=== PATIENT | female | born 1965 | race Caucasian/White ===

== ENCOUNTER 2022-01-03 17:34 | Emergency (ER) | payer SELFPAY ==
--- NOTE | ~2022-01-03 | XR_ITS ---
EXAMINATION: XR chest 2V DATE: 01/03/2022 18:31 INDICATION: Shortness of breath TECHNIQUE: PA and lateral views of the chest are obtained. COMPARISON: None available FINDINGS: The lungs are free of acute opacities. There is no pleural effusion or pneumothorax. The ca rdiomediastinal silhouette is normal. There is mild thoracic spondylosis. IMPRESSION: 1. No acute cardiopulmonary abnormality. Reviewed, dictated and finalized at location F.
--- NOTE | ~2022-01-03 | CT_ITS ---
EXAMINATION: CTA chest PE protocol DATE: 01/03/2022 20:42 INDICATION: Chest pain TECHNIQUE: Computed tomography angiography (CTA) of the chest was performed with 100 mL Omnipaque-350 intravenous contrast timed to evaluate the pulmonary arteries. Coronal maximum intensity projection 3D-reconstructions were created by the technologist. The dose-length product (DLP) was 412.89 mGy-cm. Automated exposure control and iterative reconstruction technique were employed. COMPARISON: None. FINDINGS: The pulmonary arteries are well-opacified. No pulmonary embolism is identified. There is mi ld dependent atelectasis. There is mild right hilar lymphadenopathy. The heart size is normal. There is no pleural effusion or pneumothorax. The heart size is normal. IMPRESSION: 1. No pulmonary embolus. 2. Mild right hilar lymphadenopathy, likely reactive. Reviewed, dictated and finalized at location F.
[2022-01-03 17:41] VITALS: BP 103/72; PULSE 96; RESP 18; TEMP 36.3; O2SAT 99
--- NOTE | 2022-01-03 17:44 | ECG_ITS ---
Measurements Intervals [place] Rate: 91 P: 51 [place]: 158 QRS: 5 QRSD: 113 T: 29 QT: 359 QTc: 444 Interpretive Statements SINUS RHYTHM INCOMPLETE RIGHT BUNDLE BRANCH BLOCK [90+ ms QRS DURATION, TERMINAL R IN V1/V2, 40+ ms S IN I/aVL/V4/V5/V6] MODERATE VOLTAGE CRITERIA FOR LVH, CONSIDER NORMAL VARIANT [MEETS CRITERIA IN ONE OF: R(aVL), S(V1), R(V5), R(V5/V6)+S(V1)] CANNOT RULE OUT INFERIOR MYOCARDIAL INFARCTION , PROBABLY OLD [30 ms Q WAVE IN II/aVF] NO PREVIOUS ECG AVAILABLE FOR COMPARISON Electronically Signed On 01-05-2022 17:40:39 CDT by Gopi Up M.D.
[2022-01-03 18:22] LABS: Basophils Absolute Auto 0.1 K/mm3 (0.0-0.1); Basophils Percent Auto 0.9 % (0.2-1.2); Eosinophils Absolute Auto 0.2 K/mm3 (0-0.3); Eosinophils Percent Auto 1.9 % (0-4.4); Hematocrit 41.9 % (37.0-47.0); Hemoglobin 13.4 g/dL (12.0-15.0); Immature Granulocyte Absolute 0.11 K/mm3 (0.00-0.031); Immature Granulocyte Percent A 1.1 % (0-0.5); Lymphocytes Absolute Auto 3.45 K/mm3 (0.9-3.2); Lymphocytes Percent Auto 34.1 % (18.3-44.2); Mean Corpuscular Hemoglobin 29.3 pg (26-34); Mean Corpuscular Volume 91.7 fl (80-100); Monocytes Absolute Auto 0.7 K/mm3 (0.1-0.6); Neutrophils Absolute Auto 5.6 K/mm3 (1.3-6.7); Platelet Count Result 343 k/mm3 (150-375); Red Blood Count 4.57 M/mm3 (4.2-5.4); Red Cell Distribution Width 14.1 % (11.5-14.5); White Blood Count 10.1 K/mm3 (4.5-10.0)
[2022-01-03 18:35] LABS: Alanine Aminotransferase 22 U/L (6-35); Albumin Level 4.3 g/dL (3.5-5.1); Alkaline Phosphatase 88 U/L (38-126); Anion Gap 5 mmol/L (8-16); Aspartate Amino Transferase 28 U/L (14-36); Bilirubin,Total 0.5 mg/dL (0.2-1.3); Blood Urea Nitrogen 22 mg/dL (7-17); Calcium 9.2 mg/dL (8.4-10.2); Carbon Dioxide 29 mmol/L (22-30); Chloride 105 mmol/L (98-107); Estimated CRCL calculation 81 ml/min; Estimated Glomerular Filt Rate > 60; Glucose 102 mg/dL (65-110); Potassium 3.5 mmol/L (3.4-5.0); Sodium 139 mmol/L (137-145)
[2022-01-03] MEDS: SODIUM CHLORIDE 0.9% IV 1,000 ML 999 ML IV CONT (20:23)
[2022-01-03] MEDS: KETOROLAC 30 MG/ML VIAL (*BKC) IV PUSH (20:23)
--- NOTE | 2022-01-03 21:37 | ED.GENADULT ---
HPI - General Adult General Chief complaint: Back Pain/Injury Stated complaint: sciatica Time Seen by Provider: 01/03/22 19:00 History of Present Illness HPI narrative: Patient is a 56-year-old female with history of sciatica who presents ER with left-sided back pain. Ongoing throughout the day today and worsening. Worse with deep breath and with twisting and physical movements. No fevers or chills or sweats. No productive cough or hemoptysis. No new swelling to the lower extremities or calf pain. She has not tried any pain medication other than a one-time [place] which did not help. No known trauma or inciting event. No focal numbness or weakness or issue with urination/defecation. Related Data Allergies Allergy/AdvReac Type Severity Reaction Status Date / Time codeine Allergy Unknown Unknown Verified 01/03/22 17:54 Review of Systems Review of Systems: All systems reviewed & are unremarkable except as noted in HPI and below Constitutional: Constitutional: Denies chills and Denies fever(s) Cardiovascular: Cardiovascular: Denies chest pain, Denies rapid heart rate and Denies radiating jaw, neck or arm pain Respiratory: Respiratory: Denies cough and Reports dyspnea Comments: Pain with deep breath Gastrointestinal: Gastrointestinal: Denies abdominal pain, Denies nausea and Denies vomiting Musculoskeletal: Musculoskeletal: Reports back pain and Denies joint swelling Neurologic: Denies focal weakness and Denies numbness Exam Narrative: GENERAL: Well-appearing, well-nourished, and in no acute distress. HEAD: Normocephalic, atraumatic. EYES: PERRL and EOMI. ENT: Mucous membranes moist. CHEST: Clear to auscultation. No respiratory distress. HEART: Regular rate and rhythm. Normal peripheral pulses. ABDOMEN: Soft, nontender, nondistended. Back: Tender palpation left paraspinal musculature from T3-T10 as well as lower lumbar. No midline tenderness. No right-sided paraspinal muscular tenderness. EXTREMITIES: Normal range of motion. No edema. Patient up and moving bed without any issue. SKIN: Warm, dry, no rash. NEURO: Alert and oriented x3. PSYCH: Normal mood and affect. Course Course Emergency Course: Pain improved with Toradol. Informed of results. Discharge home with supportive therapy. No evidence of infection or blood clots. Vital Signs Vital signs: Vital Signs Temperature 97.3 F L 01/03/22 17:41 Pulse Rate 96 01/03/22 17:41 Respiratory Rate 18 01/03/22 17:41 Blood Pressure 103/72 01/03/22 17:41 Pulse Oximetry 99 01/03/22 17:41 Oxygen Delivery Room Air 01/03/22 17:41 Temperature 97.3 F L 01/03/22 17:41 Pulse Rate 96 01/03/22 17:41 Respiratory Rate 18 01/03/22 17:41 Blood Pressure 103/72 01/03/22 17:41 Pulse Oximetry 99 01/03/22 17:41 Oxygen Delivery Room Air 01/03/22 17:41 Medical Decision Making Vital Signs Vital Signs: Vital Signs Temperature 97.3 F L 01/03/22 17:41 Pulse Rate 96 01/03/22 17:41 Respiratory Rate 18 01/03/22 17:41 Blood Pressure 103/72 01/03/22 17:41 Pulse Oximetry 99 01/03/22 17:41 Oxygen Delivery Room Air 01/03/22 17:41 Temperature 97.3 F L 01/03/22 17:41 Pulse Rate 96 01/03/22 17:41 Respiratory Rate 18 01/03/22 17:41 Blood Pressure 103/72 01/03/22 17:41 Pulse Oximetry 99 01/03/22 17:41 Oxygen Delivery Room Air 01/03/22 17:41 Lab Data Result diagrams: 01/03/22 18:16 01/03/22 18:16 Labs: Lab Results 01/03/22 01/03/22 01/03/22 Range/Units 18:16 18:16 21:24 WBC 10.1 H (4.5-10.0) K/mm3 RBC 4.57 (4.2-5.4) M/mm3 Hgb 13.4 (12.0-15.0) g/dL Hct 41.9 (37.0-47.0) % MCV 91.7 (80-100) fl MCH 29.3 (26-34) pg MCHC 32.0 (32-36) g/dl RDW 14.1 (11.5-14.5) % Plt Count 343 (150-375) k/mm3 MPV 11.0 H (7.4-10.4) fl Immature Gran % (Auto) 1.1 H (0-0.5) % Neut % (Auto) 55.0 (45.5-73.1) % Lymph % (Auto) 34.1
[2022-01-03 21:38] LABS: Appearance Urine Clear (Clear); Bilirubin Urine Negative (Negative); Blood Urine Negative (Negative); Color Urine Yellow (Yellow); Glucose Urine UA Negative (Negative); Ketones Urine Negative (Negative); Leukocyte Esterase Ur Negative LEU/UL (Negative); Nitrate Urine Negative (Negative); Protein Urine Negative (Negative); Specific Grav Ur 1.015 (1.001-1.035); Urobilinogen Urine 0.2 mg/dL (<2.0); pH Urine 5.5 (5.0-9.0)
[2022-01-03 21:42] LABS: Add Urine Microscopic? NO
[2022-01-03 21:57] VITALS: PULSE 68; RESP 16; O2SAT 98
== END 2022-01-03 21:58 | disposition home or self-care (01) ==
PROVIDERS: Emergency Medicine; Emergency Provider Emergency Medicine
DX: R25.2 Cramp and spasm (principal)
CPT/HCPCS: 36415; 71046; 71275; 80053; 81003; 85025; 93005; 96361; 96374; 99284; J1885; J7030; Q9967